=== PATIENT | male | born 1990 | race African-American/Black ===

== ENCOUNTER 2023-03-15 12:07 | Emergency (ER) | payer MEDICAID ==
[~2023-03-15] VITALS: Ht 170.2 cm; Wt 127.0 kg
[2023-03-15 12:15] VITALS: BP 154/91
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
--- NOTE | 2023-03-15 12:45 | NUR ---
AT BEDSIDE FOR EVAL.
[2023-03-15] MEDS ORDERED: IBUPROFEN 400 MG TABLET ONE (12:55)
[2023-03-15] MEDS ORDERED: IBUPROFEN 400 MG TABLET PO ONE (13:00)
--- NOTE | 2023-03-15 13:38 | NUR ---
X-RAY TECH AT BEDSIDE
[2023-03-15] MEDS ORDERED: IBUP-1957 PO (14:00)
--- NOTE | 2023-03-15 14:04 | NUR ---
Patient discharged to home in stable condition, ambulating. Written and verbal after care instructions given. Patient verbalizes understanding of instruction.
== END 2023-03-15 14:04 | disposition home or self-care (01) ==
LOC: ER 12:26
DX: M54.50 Low back pain, unspecified (principal); Z79.899 Other long term (current) drug therapy; V89.2XXA Person injured in unspecified motor-vehicle accident, traffic, initial encounter; Y93.89 Activity, other specified; Y92.89 Other specified places as the place of occurrence of the external cause; Y99.8 Other external cause status
CPT/HCPCS: 72190-TC